=== PATIENT | female | born 1965 | race Caucasian/White ===

== ENCOUNTER 2021-07-05 10:22 | Emergency (ER) | payer BC ==
[2021-07-05 10:35] VITALS: TEMP 97.8
--- NOTE | 2021-07-05 10:59 | ED ---
General Adult HPI - General Chief complaint: ENT Stated complaint: Fatigue, covid exposure Time Seen by Provider: 07/05/21 10:37 Source: patient, family, RN notes reviewed Mode of arrival: ambulatory Limitations: no limitations - History of Present Illness Initial comments: Patient is a very pleasant 56-year-old female presenting to the emergency depart ment with concern for possible COVID-19 infection. Patient was exposed to her brother on Wednesday and . Her brother did test positive today. Patient attempted an outpatient test however secondary to epistaxis was nondiagnostic. Patient admits to having some fatigue and mild sore throat. No other complaints. No cough or dyspnea. 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 Patient states her oxygen saturation normally is 85-90%. This is confirmed with her physician brother. - Related Data Allergies Allergy/AdvReac Type Severity Reaction Status Date / Time NSAIDS (Non-Steroidal Allergy Rash/Hives Verified 07/05/21 10:35 Anti-Inflamma Review of Systems ROS Statement: Those systems with pertinent positive or pertinent negative responses have been documented in the HPI. ROS Other: All systems not noted in ROS Statement are negative. Constitutional: Denies: fever Eyes: Denies: eye pain ENT: Reports: as per HPI, throat pain (mild) Respiratory: Denies: cough, dyspnea Cardiovascular: Denies: chest pain Endocrine: Reports: fatigue Gastrointestinal: Denies: vomiting Past Medical History Past Medical History: Hypertension Additional Past Medical History / Comment(s): congenital heart disease History of Any Multi-Drug Resistant Organisms: None Reported Additional Past Surgical History / Comment(s): thyroidectomy Past Psychological History: No Psychological Hx Reported Smoking Status: Never smoker Past Alcohol Use History: Rare Past Drug Use History: None Reported General Exam Limitations: no limitations General appearance: alert, in no apparent distress Head exam: Present: normocephalic Eye exam: Present: normal appearance ENT exam: Present: normal oropharynx Neck exam: Present: normal inspection Respiratory exam: Present: normal lung sounds bilaterally Cardiovascular Exam: Present: regular rate, normal rhythm, systolic murmur Extremities exam: Present: other (Fingernail clubbing) Neurological exam: Present: alert Psychiatric exam: Present: normal affect, normal mood Skin exam: Present: normal color Course Vital Signs 07/05/21 07/05/21 10:30 11:28 Temperature 97.8 F Pulse Rate 80 Respiratory 18 20 Rate Blood Pressure 160/83 O2 Sat by Pulse 86 L Oximetry Medical Decision Making - Medical Decision Making Patient updated on results. Patient states she is fully vaccinated and did have her booster shot. - Lab Data Lab Results 07/05/21 Range/Units 11:01 Coronavirus (PCR) Not Detected (Not Detectd) Disposition Clinical Impression: Exposure to COVID-19 virus Disposition: HOME SELF-CARE Condition: Stable Additional Instructions: Consider retesting in the next couple of days, especially if you have continued or worsening symptoms. Return for difficulty breathing, cough, loss of taste or smell, vomiting, increased sore throat, increased fatigue, worsening or changing symptoms or any other concerns. Please follow-up with primary care physician in the next couple days for recheck. Is patient prescribed a controlled substance at d/c from ED?: No Referrals: Venkat New MD [Primary Care Provider] - 1-2 days Time of Disposition: 11:30
[2021-07-05 12:00] VITALS: BP 124/75; PULSE 69; RESP 18
== END 2021-07-05 11:58 | disposition home or self-care (01) ==
LOC: EC 10:22
DX: Z20.822 Contact with and (suspected) exposure to COVID-19 (principal); I10 Essential (primary) hypertension
CPT/HCPCS: 87635; 99283